=== PATIENT | female | born 1950 | race Caucasian/White ===

== ENCOUNTER → 2016-11-11 16:43 | Outpatient (CLI) | payer MEDICARE, OTHER ==
[2015-10-23 13:28] VITALS: BMI 44.5
[~2016-11-11 16:43] MED LIST: BUSPAR10 MG PO; COREG 3.1253.125 MG PO; ELAVIL25 MG PO; HYDROCHLOROTHIA25 MG GT; LIPITOR80 MG PO; MINIPRESS2 MG PO; NEURONTIN 300300 MG PO; PEPCID AC20 MG PO; PRILOSEC20 MG PO; SYNTHROID125 MCG PO; VIIBRYD40 MG PO
== END | disposition home or self-care (01) ==
LOC: D.MAMMO 09:30
DX: Z12.31 Encounter for screening mammogram for malignant neoplasm of breast (principal)

== ENCOUNTER → 2017-01-14 14:15 | Outpatient (CLI) | payer MEDICARE, OTHER ==
[2015-10-23 13:28] VITALS: BMI 44.5
== END | disposition home or self-care (01) ==
LOC: D.MRI 14:15
DX: M54.12 Radiculopathy, cervical region (principal)

== ENCOUNTER → 2017-01-28 12:23 | Outpatient (CLI) | payer MEDICARE, OTHER ==
[2015-10-23 13:28] VITALS: BMI 44.5
== END | disposition home or self-care (01) ==
LOC: D.MRI 12:23
DX: M25.512 Pain in left shoulder (principal)

== ENCOUNTER 2017-05-20 18:25 | Inpatient (IN) | payer MEDICARE, OTHER ==
[~2017-05-20] VITALS: Ht 154.9 cm; Wt 104.1 kg
[2017-05-20 19:14] LABS: APPEARANCE HAZY (CLEAR); BILIRUBIN NEGATIVE (NEGATIVE); COLOR YELLOW (YELLOW); GLUCOSE NEGATIVE (NEGATIVE); KETONE NEGATIVE (NEGATIVE); LEUKOCYTE ESTERASE 1+ (NEGATIVE); NITRITE NEGATIVE (NEGATIVE); PROTEIN NEGATIVE (NEGATIVE); UROBILINOGEN NORMAL (NORMAL)
[2017-05-20 19:18] LABS: BASOPHILS 0 % (0-2); EOSINOPHILS 0.1 % (0-7); HEMATOCRIT 38.7 % (36.0-48.0); HEMOGLOBIN 12.6 g/dL (12-16); IMMATURE GRANULOCYTES 0.3 % (0-5); LYMPHOCYTES 30.5 % (15-50); MCH 29.2 pg (26.0-34.0); MCHC 32.6 g/dL (31.0-37.0); MCV 89.8 fL (80.0-100.0); MEAN PLATELET VOLUME 9.6 fL (7.4-10.4); MONOCYTES 7.9 % (2-11); NEUTROPHILS 61.2 % (40-80); RBC 4.31 10x6/uL (4.00-5.40); RDW 13.9 % (11.5-14.5); WBC 8.7 10x3/uL (4.8-10.8)
[2017-05-20 19:18] LABS: BACTERIA MODERATE /hpf (NONE SEEN); MUCUS <1+ /lpf (NONE SEEN); RED CELLS - URINE 0-5 /hpf (0-5); WHITE CELLS - URINE 25-50 /hpf (0-5)
[2017-05-20 19:20] LABS: PLATELET COUNT 350 10x3/uL (130-400)
[2017-05-20 19:21] LABS: UDS - AMPHET NEGATIVE QUAL (NEGATIVE); UDS - BARB NEGATIVE QUAL (NEGATIVE); UDS - BENZO NEGATIVE QUAL (NEGATIVE); UDS - COCAINE NEGATIVE QUAL (NEGATIVE); UDS - METH NEGATIVE QUAL (NEGATIVE); UDS - OPIATE NEGATIVE QUAL (NEGATIVE); UDS - PCP NEGATIVE QUAL (NEGATIVE); UDS - THC NEGATIVE QUAL (NEGATIVE)
[2017-05-20 19:32] LABS: ALBUMIN 3.7 g/dL (3.4-5.0); ANION GAP 12.5 mmol/L (8-16); BILIRUBIN - TOTAL 0.45 mg/dL (0.2-1.3); CALCIUM 8.9 mg/dL (8.5-10.1); CREATININE - SERUM 1.1 mg/dL (0.6-1.3); PROTEIN - SERUM 7.8 g/dL (6.4-8.2)
[2017-05-20 19:35] LABS: POTASSIUM - SERUM 2.5 mmol/L (3.5-5.1)
[2017-05-20 22:05] LABS: HEMOGLOBIN A1C 6.9 % (4.8-6.0)
[2017-05-20 22:17] LABS: CHOL - HDL RATIO 6.4 ratio (2.3-4.1); LDL-HDL RATIO 4.6 ratio (1.5-3.5); THYROID STIMULATING HORMONE 0.81 uIU/mL (0.36-3.74)
[2017-05-20 22:28] VITALS: BP 144/59; BMI 43.3
--- NOTE | 2017-05-21 03:34 | NUR ---
Patient arrived at 21:10 from our E.D , she had was at [facility] E.D before coming here for S.I., no plan, contracts for safety, Depression for several day, voices telling her to hurt herself, code status is Full Code, code word is [place], no family in city, emergency contact is neighbor and friend, Calm and coopertive with assessment, will continue to monitor.
[2017-05-21 08:39] VITALS: BP 164/55
[2017-05-21 14:40] VITALS: BMI 43.2
[2017-05-21 20:03] VITALS: BP 154/62
--- NOTE | 2017-05-22 02:05 | NUR ---
B) Patinet alert and oriented X 4, calm and cooperative, no mention of hearing voices, no behaviors noted, denies any S.I. this shift I) Administered scheduled medications, monitored for safety and behaviors, contracted for safety, R) Medication compliant, pleasant and friendly , social with staff and peers. P) Continue plan of care.
[2017-05-22 05:13] LABS: RAPID PLASMA REAGIN Non Reactive (Non Reactive)
[2017-05-22 07:19] LABS: FOLATE (FOLIC ACID) - SERUM 17.3 ng/mL (>3.0)
[2017-05-22 15:57] VITALS: BP 142/53
--- NOTE | 2017-05-22 18:33 | NUR ---
PT IS RECEIVED SITTING IN CHAIR BY NURSE STATION. PT IS ALERT AND ORIENTED X3. PT DENIES PAIN. DENIES ANXIETY OR DEPRESSION. DENIES SI AND CONTRACTS FOR SAFETY. NO HALLUCINATIONS ARE NOTED OR REPORTED. PT IS COOPERATIVE WITH STAFF AND IS COMPLIANT WITH MED'S AND CARE. PT IS SOCIAL AND PLEASANT WITH STAFF AND PEERS. SAFETY MEASURES ARE IMPLEMENTED. WILL CONTINUE TO MONITOR AND CONTINUE WITH PLAN OF CARE.
[2017-05-22 19:08] LABS: VITAMIN D 25 HYDROXY 34.4 ng/mL (30.0-100.0)
[2017-05-22 19:30] VITALS: BP 149/84
--- NOTE | 2017-05-22 20:20 | PSY ---
PATIENT NAME:ALEX MANZO MEDICAL RECORD: [id number] : 48 LOCATION:[facility] ADMISSION DATE: 05/20/17 ACCOUNT: [id number] PSYCHIATRIC EVALUATION DATE OF EVALUATION: 05/21/17 Initial Psychiatric Workup IDENTIFYING DATA: This is the first Group Home and one of several lifetime psychiatric hospitalizations for this 66-year-old white female. HISTORY OF PRESENT ILLNESS: This patient presented to the Emergency evaluation at [facility] last night stating that she was hearing voices telling her to kill herself. She had been having severely worsening depressive symptoms in recent weeks and this culminated in the decision to have herself evaluated and hospitalized. The patient does have a past history of bipolar disorder with severe depressive symptoms. She has had intermittent psychotic symptoms during her lifetime. She was hospitalized at the old [facility] psychiatric unit at [facility] a number of years ago. She has been followed in the past at [facility] (now [facility]). However, she has not recently been seen by a psychiatrist and her medications have not been updated recently. The patient lives alone. She is a . She does not have substance abuse issues. PAST MEDICAL HISTORY: Significant for hypertension, hypothyroidism, gastroesophageal reflux disease, hyperlipidemia and electrolyte disturbance. MEDICATIONS: At the time of admission included Neurontin 1200 mg daily, Minipress 2 mg twice a day, Viibryd 40 mg daily, Coreg 3.125 mg twice a day, Prilosec 20 mg daily, Lipitor 80 mg h.s., hydrochlorothiazide 25 mg daily, levothyroxine 125 mcg daily and BuSpar 10 mg twice a day. FAMILY HISTORY: Noncontributory. ALLERGIES: No known allergies. SOCIAL HISTORY: As mentioned, the patient is a . She lives alone. She is not employed. MENTAL STATUS: On interview, the patient is pleasant and cooperative. She makes good eye contact. Mood is for the most part euthymic. Affect is bland. Speech is fairly fluent. Content of thought as noted above for suicidal ideation and auditory hallucinations. The patient is oriented to time, place and person. Concentration shows minor difficulties; otherwise, sensorium is relatively intact. DIAGNOSTIC IMPRESSION: AXIS I: Bipolar disorder -- depressed phase. AXIS II: Deferred. AXIS III: Hypertension, hypothyroidism, gastroesophageal reflux disease, hyperlipidemia, electrolyte disturbance and type 2 diabetes. AXIS IV: Moderate. AXIS V: 38. PLAN: 1. We will admit for further medical and psychiatric workup. 2. Daily supportive therapy. 3. We will coordinate with the patient regarding followup care. TRANSINT:[id number] Voice Confirmation ID: [id number] DOCUMENT ID: [id number] SHWETHA TONY III, MD at 2020 CC: [id number] DICTATION DATE: 05/21/17 105 WEB CONTENT COORDINATOR: 05/21/17 1144 ADM [place] [id number] [place] [id number]
--- NOTE | 2017-05-23 04:00 | NUR ---
B) Patient alert and orient, calm and cooperative with care and assessment, friendly and social with staff and peers, I) Administered scheduled medications, monitored for safety, contracted for safety, R) Medication compliant, no S.I. or hallucinations this shift, P) Continue plan of care.
[2017-05-23 07:00] VITALS: BP 146/71
--- NOTE | 2017-05-23 14:58 | NUR ---
ALERT AND ORIENTED.DENIES PAIN AND NEEDS.IS COMPLIANT WITH STAFF AND MEDS.AMBULATES PER SELF.WILL CONTINUE WITH PLAN OF CARE,MONITOR FOR CHANGES AND SAFETY.
[2017-05-23 19:31] VITALS: BP 125/58
--- NOTE | 2017-05-23 20:34 | NUR ---
RECEIVED IN DAYROOM. RECEIVED IN DAYROOM. TALKING ON PHONE TO HER SON. CALM AND COOPERATIVE WITH CARE AND ASSESSMENTS. NO SIGNS OF HALLUCIANTIONS. ENCOURAGE TO EXPRESS NEEDS. DENIES THOUGHTS OF SELF HARM. CONTINUES TO SIT QUIETLY IN CHAIR. SOCIALIZING AT TIMES. CONTINUE PLAN OF CARE
[2017-05-24 07:00] VITALS: BP 138/66
[2017-05-24 09:23] VITALS: Ht 154.9 cm; Wt 104.1 kg
--- NOTE | 2017-05-24 09:52 | PN ---
PATIENT:ALEX MANZO MEDICAL RECORD: [id number] LOCATION:[facility] ADMISSION DATE: 05/20/17 PROGRESS NOTE DATE OF SERVICE: 05/23/2017 SUBJECTIVE: No new complaint. OBJECTIVE: The patient has been cooperative. She is tolerating medications well. Staff reports no new problems. On exam, mood is fairly pleasant. Affect is bland. Speech is fluent. Content of thought is positive for recent suicidal ideation. Sensorium shows no change. ASSESSMENT: No change in diagnosis. PLAN: 1. Maintain present medication. 2. Continue supportive therapy. TRANSINT:[id number] Voice Confirmation ID: [id number] DOCUMENT ID: [id number] SHWETHA TONY III, MD at 0952 CC: [id number] DICTATION DATE: 05/23/17621 BLOCKING MACHINE TENDER: 05/23/17 0920 ADM [place] [id number] [place] [id number]
[2017-05-24] MEDS ORDERED: LEXAPRO10 MG PO (11:20)
[2017-05-24] MEDS ORDERED: K-DUR20 MEQ PO (11:20)
[2017-05-24] MEDS ORDERED: PERPHENAZINE2 MG PO (11:20)
[2017-05-24] MEDS ORDERED: TRADJENTA5 MG PO (11:21)
--- NOTE | 2017-05-24 11:38 | NUR ---
DENIES HALLUCINATIONS AND NO EVIDENCE OF ANY NOTED. DENIES SI. CALM, COOPERATIVE. MEDICATIONS GIVEN ORDERED. FRIEND CALLED FOR PICKUP DUE TO PT DISCHARGING TODAY. DISCHARGE PAPERWORK REVIEWED AND FAXED TO PCP. BELONGINGS FOUND AND ACCOUNTED FOR.
--- NOTE | 2017-05-25 11:09 | DS ---
PATIENT:ALEX MANZO :48 MEDICAL RECORD: [id number] DISCHARGE SUMMARY ADMISSION DATE: 05/20/17 DISCHARGE DATE: 05/24/17 DATE OF ADMISSION: 05/20/2017 DATE OF DISCHARGE: 05/24/2017 HISTORY OF PRESENT ILLNESS: First [facility] admission and one of several lifetime psychiatric contacts for this 66-year-old white female. The patient had initially presented to leave the hospital stating that she was hearing voices telling her to harm herself. She had been having markedly worsening depressive symptoms. She does have a past history of bipolar disorder and had been hospitalized in the past at [facility]. She also has been followed through [facility] in the past. For further details, please see previously dictated history. COURSE IN THE HOSPITAL: The patient was seen in consultation by Dr. Gregory. He noted the presence of hypertension, hypothyroidism, GERD, hypokalemia, hyperlipidemia, type 2 diabetes, irritable bowel syndrome and chronic neuropathy. From a medication standpoint, adjustments were made. The patient was started on Lexapro 10 mg daily for her depressive symptoms as well as perphenazine 2 mg h.s., both for sleep and to correct any psychotic symptoms. The patient responded extremely well to these medications. She participated well in group activities. She was cooperative with staff. By the time of discharge, the patient was not exhibiting any evidence of suicidality. She did have plans to follow up with primary care and with [facility]. FINAL DIAGNOSES: AXIS I: Bipolar disorder -- depressed -- improving. AXIS II: No diagnosis. AXIS III: Hypertension, hypothyroidism, gastroesophageal reflux disease, hyperlipidemia, electrolyte disturbance, type 2 diabetes. AXIS IV: Moderate. AXIS V: 50. PLAN: 1. The patient is discharged on current medications. 2. Diet and activities as tolerated. 3. Follow up at [facility] and [facility], as well as with her primary care physician. TRANSINT:[id number] Voice Confirmation ID: [id number] DOCUMENT ID: [id number] SHWETHA TONY III, MD at 1109 CC: [id number] DICTATION DATE: 05/24/17 1132 SENIOR TRAINING SPECIALIST: 05/24/174 DIS IN 05/24/17 [place] [id number] [place], [place] [id number]
== END 2017-05-24 12:35 | disposition home or self-care (01) | DRG 885 ==
LOC: D.ER 18:25 → D.PSYCH 21:12
PROVIDERS: Emergency Medicine; ADMIT Psychiatry & Neurology Psychiatry
DX: F31.30 Bipolar disorder, current episode depressed, mild or moderate severity, unspecified (principal); F41.8 Other specified anxiety disorders; E11.40 Type 2 diabetes mellitus with diabetic neuropathy, unspecified; I10 Essential (primary) hypertension; E03.9 Hypothyroidism, unspecified; K21.9 Gastro-esophageal reflux disease without esophagitis; E78.5 Hyperlipidemia, unspecified; E87.6 Hypokalemia; K58.0 Irritable bowel syndrome with diarrhea

== ENCOUNTER 2017-09-22 06:12 | Day surgery (SDC) | payer MEDICARE, OTHER ==
[2017-09-21 11:23] LABS: HEMATOCRIT 38.4 % (36.0-48.0); HEMOGLOBIN 12.3 g/dL (12-16); MCH 28.4 pg (26.0-34.0); MCV 88.7 fL (80.0-100.0); MEAN PLATELET VOLUME 10.3 fL (7.4-10.4); RBC 4.33 10x6/uL (4.00-5.40); RDW 14.1 % (11.5-14.5); WBC 6.2 10x3/uL (4.8-10.8)
[2017-09-21 11:38] LABS: CALC OSMOLALITY 277 mosm/kg (275-300); CALCIUM 9.3 mg/dL (8.5-10.1); CARBON DIOXIDE 28.8 mmol/L (21.0-32.0); CHLORIDE - SERUM 105 mmol/L (98-107); CREATININE - SERUM 0.7 mg/dL (0.6-1.3); POTASSIUM - SERUM 4.2 mmol/L (3.5-5.1); SODIUM 140 mmol/L (136-145); UREA NITROGEN 11 mg/dL (7-18); eGFR NON AFRICAN AMERICAN 88 mL/min (90-120)
[2017-09-21 11:42] LABS: GLUCOSE 101 mg/dL (74-106)
[~2017-09-22] VITALS: Ht 154.9 cm; Wt 91.6 kg
[~2017-09-22 06:12] MED LIST changes: -HYDROCHLOROTHIA25 MG GT; +HYDROCHLOROTHIA25 MG PO; +K-DUR20 MEQ PO; +LEXAPRO10 MG PO; +OMEPRAZOLE20 M1 PO; +PERPHENAZINE2 MG PO; -PRILOSEC20 MG PO; -SYNTHROID125 MCG PO; +SYNTHROID137 MCG PO; +TRADJENTA5 MG PO
[2017-09-22] MEDS ORDERED: KLOR-CON M2020 MEQ PO (07:42)
[2017-09-22] MEDS ORDERED: BAYER CHEWABLE81 MG PO (07:51)
[2017-09-22] MEDS ORDERED: PEPCID20 MG PO (07:51)
[2017-09-22] MEDS ORDERED: CATAPRES0.1 MG PO (07:52)
[2017-09-22] MEDS ORDERED: ELAVIL25 MG PO (07:52)
[2017-09-22] MEDS ORDERED: FOLBIC RF TABL1 EACH PO (07:53)
[2017-09-22] MEDS ORDERED: VITAMIN D31000 UNI2 PO (07:53)
[2017-09-22] MEDS ORDERED: VITAMIN C250 MG PO (07:54)
[2017-09-22] MEDS ORDERED: ULTRAM50 MG PO (07:55)
[2017-09-22 08:15] VITALS: BP 133/71; Ht 154.9 cm; Wt 91.6 kg
--- NOTE | 2017-09-23 13:27 | HP ---
PATIENT: ALEX MANZO MEDICAL RECORD: [id number] ACCOUNT: [id number] LOCATION:[facility] : 48 ADMISSION DATE: 09/22/17 HISTORY AND PHYSICAL EXAMINATION There is a history and physical on the chart. PRIMARY CARE PHYSICIAN: Roney Mckeon DO HISTORY OF PRESENT ILLNESS: The patient was referred due to gastric polyps which have been bleeding. This is a patient of Dr. Flor'jolie. The risks, possible complications, and alternatives to procedure were explained to the patient. She elects to proceed. The discussion specifically included, but was not limited to, bleeding requiring emergency reoperation, infection, endoscopic perforation. TRANSINT:[id number] Voice Confirmation ID: [id number] DOCUMENT ID: [id number] TIMOTHY ARGUETA MD at 1327 CC: [id number] DICTATION DATE: 09/22/17 1126 CELLOPHANE PRESS OPERATOR: 09/22/17 1149 [facility] 09/22/17 [place] [address] [place] [address]
--- NOTE | 2017-09-23 13:27 | OP ---
PATIENT NAME: ALEX MANZO MEDICAL RECORD: [id number] :48 LOCATION:D.OPS ADMISSION DATE: SURGEON: TIMOTHY ARGUETA MD DATE OF OPERATION: 09/22/2017 PREOPERATIVE DIAGNOSIS: Bleeding gastric polyps. POSTOPERATIVE DIAGNOSES: Four gastric polyps, one at least that has bled recently. PROCEDURES: 1. Esophagogastroduodenoscopy. 2. Hot biopsy forceps polypectomy times 1. 3. Snare polypectomies times 3. 4. Treatment of the polypoid bases with the argon plasma software performance engineer utilizing the esophageal setting in the forced mode. SURGEON: Timothy Argueta MD CNC PROGRAMMER: None. BLOOD LOSS: Minimal. ANESTHESIA: General. COMPLICATIONS: None. The risks, possible complications, and alternatives to the procedure were explained to the patient. She elects to proceed. OPERATIVE COURSE: The patient was conveyed to the operating room electively on 09/22/2017. General anesthesia was induced by the anesthesia staff. A bite-block was inserted. A gastroscope was inserted into the mouth. It was advanced easily into the hypopharynx. The esophagus was easily intubated as were the stomach and the duodenum. Upon withdrawal, retroflexed and angulus views were obtained. A hot biopsy forceps polypectomy was performed in the fundus utilizing the snare. Snare polypectomies were performed of 3 polyps in the antrum. The polyps were each grasped with endoscopic retrieval net and withdrawn through the mouth. I then re-endoscoped the patient's esophagus and stomach. I treated the polypoid bases with the argon plasma software performance engineer. There was no bleeding. The endoscope was then withdrawn under direct vision. I will see the patient in my office in 2-3 weeks. I will plan to perform another upper endoscopy with the argon plasma software performance engineer in one year. If there is no regrowth of polyps, my plan would be to return the patient's endoscopic care back over to Dr. Flor at that time. TRANSINT:[id number] Voice Confirmation ID: [id number] DOCUMENT ID: [id number] OPERATIVE REPORT [id number] ALEX MANZO TIMOTHY ARGUETA MD at 1327 CC: RICARDO FLOR MD and SUBHA OTERO DO [id number] DICTATION DATE: 09/22/17 1133 ELECTORAL OFFICER: 09/22/17 1309 [facility] 09/22/17 [facility] [address] [place] [id number]
== END 2017-09-22 12:55 | disposition home or self-care (01) ==
LOC: D.OPS 06:12 → D.PAN 11:30 → D.OPS 12:55 → D.PAN 13:00
PROVIDERS: Anesthesiology
DX: K31.7 Polyp of stomach and duodenum (principal); K29.50 Unspecified chronic gastritis without bleeding; Z01.812 Encounter for preprocedural laboratory examination

== ENCOUNTER 2017-10-06 11:26 | Outpatient (CLI) | payer MEDICARE, OTHER ==
[~2017-10-06] VITALS: Ht 152.4 cm; Wt 89.5 kg
--- NOTE | ~2017-10-06 | HEMODYNAMI ---
PATIENT:ALEX MANZO MEDICAL RECORD: [id number] : 48 LOCATION:D.CAT ADMISSION DATE: 10/06/17 Generatedon:10/06/201715:07 Patient name: ALEX MANZO Patient #: [id number] SSN: : Date of study: 10/06/2017 Page: Of Hemodynamic Procedure Report Patient Data Patient Demographics Procedure consent was obtained First Name: ALEX Gender: Female Last Name: ANAIS : 1950 [facility] Initial: KENDELL Age: 67 year(s) Patient #: [id number] Race: Additional ID: [id number] Contact details Address: [address] [place] [address] State: [place] City: [facility] Zip code: [address] Admission Admission Data Admission Date: 10/06/2017 Admission Time: 11:26 Height (in.): 6 BSA: 0.36 (m2) Height (cm.): 15.24 BMI: 4042.65 (kg/m2) Weight (lbs.): 207 Weight (kg.): 93.89 Procedure Procedure Types Cath Procedure Miscellaneous Procedures Moderate Sedation up to 15 minutes Peripheral Cath Diagnostic Procedure Cath Peripheral Ihzzg-Mgmvgov-Fdu-Off Procedure Description Procedure Date Procedure Date: 10/06/2017 Procedure Start Time: 14:55 Procedure End Time: 15:06 Procedure Staff Name Function Linda Tran MD Ordering physician Anton Crump MD Performing Physician Uyen Bo RT Monitor Park Almendarez RN Nurse Nato Siddiqui RN Glazier Stained Glass Rox Talavera RT Scrub Procedure Data Cath Procedure Fluoroscopy Diagnostic fluoroscopy Total fluoroscopy Time: 1.1 time: 1.1 min min Diagnostic fluoroscopy Total fluoroscopy dose: 177 dose: 177 mGy mGy Contrast Material Contrast Material Type Amount (ml) Isovue 300 78 Entry Location Entry Primary Successful Side Size Upsize Upsize Entry Closure Succes sful Closure Location (Fr) 1 (Fr) 2 (Fr) Remarks Device Remarks Femoral Right 5 Fr Exoseal artery Estimated blood loss: 10 ml Procedure Complications No complications Procedure Medications Medication Administration Route Dosage 0.9% NaCl I.V. 100 ml/hr Oxygen NC 2 l/min Lidocaine 2% 20 Heparin Flush Bag added to field 2 bags (1000units/500ml NS) Fentanyl I.V. 50 mcg Versed I.V. 1 mg Versed I.V. 1 mg Fentanyl I.V. 50 mcg Fentanyl I.V. 50 mcg Hemodynamics Rest BSA: 0.36 (m2) O2 Consumption: Estimated: 33.92 (ml/min) O2 Consumption indexed: Estimated:94.22 (ml/min/m) Heart Rate: 74 (bpm) Snapshots Pre Cath Intra NCS Post Cath Vital Signs Time Heart Resp SPO2 etCO2 NIBP (mmHg) Rhythm Pain Sedation Rate (ipm) (%) (mmHg) Status Level (bpm) 14:36:42 78 20 96 0 140/65(100) NSR 0 (11) 10(A) , No pain 14:41:00 74 15 100 39.4 144/70(94) NSR 0 (11) 10(A) , No pain 14:45:16 74 18 100 37.2 142/71(95) NSR 0 (11) 10(A) , No pain 14:49:34 80 18 95 28.2 133/65(95) NSR 0 (11) 10(A) , No pain 14:53:52 83 19 97 28.2 139/72(96) NSR 0 (11) 10(A) , No pain 14:58:04 85 16 94 25.3 132/76(110) NSR 0 (11) 10(A) , No pain 15:03:05 86 16 96 31.9 154/83(120) NSR 0 (11) 10(A) , No pain 15:07:23 89 13 97 30.5 162/83(114) NSR 0 (11) 10(A) , No pain Medications Time Medication Route Dose Verified Delivered Reason Notes E ffectiveness by by 14:40:22 0.9% NaCl I.V. 100ml/hr Anton Park used for Theron Almendarez hair worker 14:40:33 Oxygen NC 2 l/min Anton Park Per Theron Almendarez RN physician 14:40:44 Lidocaine 2% 20ml Anton Anton for local vial Theron Crump MD anesthetic 14:40:52 Heparin Flush added 2 bags Anton Anton used for Bag to Theron Crump MD procedure (1000units/500ml field NS) 14:46:32 Fentanyl I.V. 50 mcg Anton Park for Theron Almendarez RN sedation 14:46:40 Versed I.V. 1 mg Anton Park for Theron Almendarez RN sedation 14:54:04 Versed I.V. 1 mg Anton Park for Theron Almendarez RN sedation 14:54:43 Fentanyl I.V. 50 mcg Anton Park for Theron Almendarez RN sedation 14:57:13 Fentanyl I.V. 50 mcg Anton Park for Theron Almendarez RN sedation Procedure Log Time Note 14:30:32 Patient Height : 6 inches 14:30:43 Patient Weight : 207 lbs 14:31:37 Procedure type changed to Cath procedure, Miscellaneous Procedures, Moderate Sedation up to 15 minutes, Peripheral Cath Diagnostic Procedure, Cath Peripheral, Mawdt-Bbnkptz-Qqt-Off 14:32:13 Diagnostic Cath status Elective 14:32:19 Nato Siddiqui RN sent for patient. Start room use. 14:32:32 Time tracking: Regular hours 14:32:39 Plan of Care:Hemodynamics will remain stable., Cardiac rhythm will remain stable., Comfort level will be maintained., Respiratory function will remain adequate., Patient/ family verbilizes understanding of procedure., Procedure tolerated without complication., Recovers from procedure without complications.. 14:32:45 Patient received from Pre/Post Procedure Room to [facility] 2 Alert and oriented. Tansferred to table in Supine position. 14:32:47 Warm blankets applied, and juli hugger turned on for patient comfort. 14:32:48 Correct patient and procedure confirmed by team. 14:32:49 Signed procedure consent form obtained from patient. 14:33:07 H&P Date Dictated: 09/16/2017 Within 30 days and on chart., H&P Addendum completed by physician on day of procedure. (MUST COMPLETE FOR ALL OUTPATIENTS). 14:33:10 Pre-procedure instructions explained to patient. 14:33:12 Family in waiting room. 14:33:13 Patient NPO since Midnight. 14:33:20 Is the patient allergic to Iodine/contrast media? No. 14:33:33 Is patient on blood thinner?No 14:33:35 Patient diabetic? Yes. 14:33:36 If diabetic: On Metformin? No 14:33:52 Previous problem with sedation/anesthesia? Yes ? 14:33:55 Snore? Unknown 14:33:57 Sleep apnea? No 14:34:26 Patient pain scale 0/10 ?. 14:34:32 IV patent on arrival in left forearm with 0.9% NaCl at [facility]. 14:34:39 Lab results completed and on chart. 14:34:49 Bilateral groins area was prepped with chlora-prep and draped in sterile fashion 14:34:51 Alarms reviewed by R. N. 14:34:51 Sharps counted by scrub and verified by R.N. 14:34:54 Physician paged 14:35:15 Physician arrived 14:35:33 Vital chart was started 14:40:22 0.9% NaCl 100ml/hr I.V. was administered by Park Almendarez RN; used for procedure; 14:40:33 Oxygen 2 l/min NC was administered by Park Almendarez RN; Per physician; 14:40:44 Lidocaine 2% 20ml vial was administered by Anton Crump MD; for local anesthetic; 14:40:52 Heparin Flush Bag (1000units/500ml NS) 2 bags added to field was administered by Anton Crump MD; used for procedure; 14:44:37 ECG and BP/O2 sat monitors applied to patient. 14:44:38 Baseline sample Acquired. 14:44:41 Rhythm: sinus rhythm 14:44:43 Full Disclosure recording started 14:45:47 --------ALL STOP TIME OUT------ 14:45:48 Final Timeout: patient, procedure, and site verified with staff and physician. All members of the team are in agreement. 14:45:51 Bilateral groins site verified by team. 14:45:55 Physical assessment completed. ASA score P 2 - A patient with mild systemic disease as per Anton Crump MD. 14:45:59 Sedation plan: IV Moderate Sedation Medication:Versed, Fentanyl 14:46:32 Fentanyl 50 mcg I.V. was administered by Park Almendarez RN; for sedation; 14:46:40 Versed 1 mg I.V. was administered by Park Almendarez RN; for sedation; 14:50:27 Use device set Femoral Dx 14:51:04 ACIST Syringe (38996) opened to sterile field. 14:51:05 Bag Decanter (2002S) opened to sterile field. 14:51:05 Medline Cath Pack ([id number]) opened to sterile field. 14:51:07 SHEATH 5FR Zortman (KFF315) opened to sterile field. 14:51:08 DIAGNOSTIC WIRE .035 260cm J wire (616862) opened to sterile field. 14:51:12 ACIST Hand Control (06991) opened to sterile field. 14:51:12 ACIST Manifold (65158) opened to sterile field. 14:51:14 Tegaderm 4 x 4 (1626W) opened to sterile field. 14:51:15 PERCUTANEOUS ENTRY 19GA needle opened to sterile field. 14:54:04 Versed 1 mg I.V. was administered by Park Almendarez RN; for sedation; 14:54:36 Procedure started. 14:54:43 Fentanyl 50 mcg I.V. was administered by Park Almendarez RN; for sedation; 14:55:53 Local anesthetic to right femoral artery with Lidocaine 2% by Anton Crump MD.INITIAL ACCESS ONLY 14:56:07 A 5 Fr sheath was inserted into the Right Femoral artery 14:57:13 Fentanyl 50 mcg I.V. was administered by Park Almendarez RN; for sedation; 14:58:54 A 5fr UF catheter was inserted over the wire. 14:59:04 Abdominal angiogram w/ runoff was performed. 15:01:25 Right leg runoff performed. 15:01:26 Left leg runoff performed. 15:01:45 Wire removed. 15:01:54 EXOSEAL 5Fr (EX500) opened to sterile field. 15:02:15 Sheath removed intact; hemostasis achieved with Exoseal to the Right Femoral artery. 15:02:31 Catheter removed. 15:02:44 Procedure ended.(Physican Out) 15:03:32 Fluoroscopy time 01.10 minutes. 15:04:02 Fluoroscopy dose: 177 mGy 15:04:02 Flurop Dose total: 177 15:04:07 Contrast amount:Isovue 300 78ml. 15:04:20 Sharps counted by scrub and verified by R.N. 15:04:24 Insertion/operative site no bleeding no hematoma. 15:04:31 Post-op/insertion site Right Femoral artery dressed using a 4 x 4 and Tegaderm. 15:04:35 Post Procedure Pulses reassessed and unchanged 15:04:51 Post-procedure physical assessment completed. ASA score P 2 - A patient with mild systemic disease as per Anton Crump MD. 15:04:58 Post procedure rhythm: unchanged. 15:05:01 Estimated blood loss: 10 ml 15:05:07 Post procedure instruction explained to patient.Patient verbalizes understanding. 15:05:39 Procedure and supply charges have been captured, reviewed, submitted and are correct. 15:06:25 Procedure Complication : No complications 15:06:28 Vital chart was stopped 15:06:31 See physician's report for complete and final results. 15:06:33 Report given to Pre/Post Procedure Room. 15:06:39 Patient transfered to Pre/Post Procedure Room with Stretcher. 15:06:41 Procedure ended. 15:06:41 Full Disclosure recording stopped 15:06:44 End room use (Document Last) Device Usage Item Name Manufacture Quantity Catalog Hospital Part Current Minimal Lot# / Number Charge Number Stock Stock Serial# Code ACIST Acist 1 [id number] [id number] [id number] [id number] 20 Syringe Medical (67138) Systems Inc Bag Decanter Microtek 1 2001S 196355 84041 093739 5 (2001S) Medical Inc. Medline Cath Cardinal 1 [id number] 492154 89145 379056 5 [facility] ([id number]) SHEATH 5FR Terumo 1 [id number] 880509 331526 [id number] 40 Zortman (QOY645) DIAGNOSTIC St Derrick 1 549310 456287 261606 836405 30 WIRE .035 260cm J wire (171662) ACIST Hand Acist 1 59439 399681 833672 848258 5 Control Medical (75592) Systems Inc ACIST Acist 1 25846 893134 068127 548790 5 Manifold Medical (06992) Systems Inc Tegaderm 4 x 3M 1 1626W 071938 407037 270284 5 4 (1626W) PERCUTANEOUS Cook Medical 1 [id number] 851069 790162 5 ENTRY 19GA needle EXOSEAL 5Fr Cardinal 1 EX500 761858 432681 727799 10 (EX500) Health Signature Audit [place] Stage Time Signature Unsigned Intra-Procedure 10/06/2017 Uyen Bo 3:07:47 PM RT(R) Signatures Monitor : Uyen Bo Signature : RT Date : Time : [address] [id number]
[~2017-10-06 11:26] MED LIST changes: +BAYER CHEWABLE81 MG PO; +CATAPRES0.1 MG PO; +FOLBIC RF TABL1 EACH PO; +KLOR-CON M2020 MEQ PO; +PEPCID20 MG PO; +ULTRAM50 MG PO; +VITAMIN C250 MG PO; +VITAMIN D31000 UNI2 PO
[2017-10-06 12:44] VITALS: BP 151/67; Ht 152.4 cm; Wt 89.5 kg
[2017-10-06 12:48] LABS: BASOPHILS 0 % (0-2); EOSINOPHILS 0.1 % (0-7); HEMATOCRIT 40.7 % (36.0-48.0); HEMOGLOBIN 13.2 g/dL (12-16); IMMATURE GRANULOCYTES 0.1 % (0-5); LYMPHOCYTES 21.2 % (15-50); MCH 28.2 pg (26.0-34.0); MCHC 32.4 g/dL (31.0-37.0); MEAN PLATELET VOLUME 10.4 fL (7.4-10.4); MONOCYTES 7.4 % (2-11); NEUTROPHILS 71.2 % (40-80); PLATELET COUNT 320 10x3/uL (130-400); RBC 4.68 10x6/uL (4.00-5.40); RDW 14.3 % (11.5-14.5); WBC 8.1 10x3/uL (4.8-10.8)
[2017-10-06 13:11] LABS: CALC OSMOLALITY 277 mosm/kg (275-300); CALCIUM 9.7 mg/dL (8.5-10.1); CARBON DIOXIDE 26.9 mmol/L (21.0-32.0); CHLORIDE - SERUM 103 mmol/L (98-107); CREATININE - SERUM 0.7 mg/dL (0.6-1.3); GLUCOSE 108 mg/dL (74-106); POTASSIUM - SERUM 3.8 mmol/L (3.5-5.1); SODIUM 139 mmol/L (136-145); UREA NITROGEN 10 mg/dL (7-18); eGFR NON AFRICAN AMERICAN 88 mL/min (90-120)
== END 2017-10-06 17:28 | disposition home or self-care (01) ==
LOC: D.CATH 11:26
PROVIDERS: Internal Medicine Cardiovascular Disease
DX: M79.605 Pain in left leg (principal); M79.604 Pain in right leg; Z01.812 Encounter for preprocedural laboratory examination

== ENCOUNTER → 2018-04-11 13:43 | Outpatient (CLI) | payer MEDICARE, OTHER ==
[2017-10-06 12:44] VITALS: BMI 38.5
== END | disposition home or self-care (01) ==
LOC: D.CT 13:43
DX: R31.21 Asymptomatic microscopic hematuria (principal)

== ENCOUNTER → 2018-08-03 18:10 | Outpatient (CLI) | payer MEDICARE, OTHER ==
[2017-10-06 12:44] VITALS: BMI 38.5
== END | disposition home or self-care (01) ==
LOC: D.LABREF 18:10
DX: D72.829 Elevated white blood cell count, unspecified (principal)

== ENCOUNTER → 2018-08-22 16:32 | Outpatient (CLI) | payer MEDICARE, OTHER ==
[2017-10-06 12:44] VITALS: BMI 38.5
== END | disposition home or self-care (01) ==
LOC: D.LABREF 16:32
DX: D72.829 Elevated white blood cell count, unspecified (principal)